=== PATIENT | male | born 1980 | race Hispanic/Latino ===

== ENCOUNTER 2019-03-28 00:15 | Emergency (ER) | payer OTHER ==
[2019-03-28] MEDS ORDERED: LIDOCAINE HCL 1% 20 ML VIAL ONE (00:27)
== END 2019-03-28 01:04 | disposition home or self-care (01) ==
LOC: EDH 00:15
DX: S61.511A Laceration without foreign body of right wrist, initial encounter (principal); Z87.891 Personal history of nicotine dependence; W25.XXXA Contact with sharp glass, initial encounter; Y93.89 Activity, other specified; Y92.098 Other place in other non-institutional residence as the place of occurrence of the external cause; Y99.8 Other external cause status
CPT/HCPCS: 12001; 73110

== ENCOUNTER → 2024-01-20 | Outpatient (CLI) | payer OTHER ==
[~2024-01-20] MED LIST: IBUP-1493 PO
== END | disposition home or self-care (01) ==
LOC: RAH 15:26
PROVIDERS: ATTEND Internal Medicine
DX: M19.071 Primary osteoarthritis, right ankle and foot (principal); M79.89 Other specified soft tissue disorders; M25.571 Pain in right ankle and joints of right foot; M79.671 Pain in right foot
CPT/HCPCS: 73600; 73620